=== PATIENT | female | born 1985 | race Caucasian/White ===

== ENCOUNTER 2019-10-01 08:53 | Day surgery (SDC) | payer BC ==
[2019-09-25 16:12] LABS: BASOPHILS % (AUTO) 0.3 % (0-1); EOSINOPHILS % (AUTO) 0.6 % (0-6); LYMPHOCYTES # (AUTO) 2.2 X10'3 (1.1-4.8); MEAN CORPUSCULAR HEMOGLOBIN 28.4 PG (27.0-31.0); MEAN CORPUSCULAR HGB CONC 33.1 g/dL (33.0-36.5); MEAN CORPUSCULAR VOLUME 85.8 FL (78-98); MONOCYTES # (AUTO) 0.4 X10'3 (0-0.9); MONOCYTES % (AUTO) 6.5 % (2-12); NEUTROPHILS # (AUTO) 3.9 X10'3 (1.8-7.7); NEUTROPHILS % (AUTO) 59.6 % (42-75); PRE OP HEMATOCRIT 42.5 % (35.0-45.0); PRE OP HEMOGLOBIN 14.1 g/dL (12.0-16.0); PRE OP PLATELET COUNT 294 X10'3 (140-440); RED BLOOD COUNT 4.96 X10'6 (4.20-5.60); RED CELL DISTRIBUTION WIDTH 13.7 % (11.5-14.5)
[2019-09-25 16:26] LABS: PRE OP PROTIME 10.7 SECONDS (9.0-12.0)
[2019-09-25 16:31] LABS: ALBUMIN 4.2 G/DL (3.4-5.0); ALKALINE PHOSPHATASE 62 IU/L (46-116); BLOOD UREA NITROGEN 8 MG/DL (7-18); BUN/CREATININE RATIO 10.1 (6.6-38.0); CALCIUM 9.5 MG/DL (8.5-10.1); CHLORIDE 105 MMOL/L (99-107); CREATININE 0.79 MG/DL (0.40-0.90); PRE OP ALT 33 U/L (30-65); PRE OP ANION GAP 9 (8-16); PRE OP AST 19 U/L (10-37); PRE OP BILIRUB, TOTAL 0.7 MG/DL (0.0-1.0); PRE OP GLUCOSE 91 MG/DL (70-104); PRE OP POTASSIUM 3.7 MMOL/L (3.4-5.1); PRE OP SODIUM 143 MMOL/L (135-145); TOTAL CARBON DIOXIDE 28.9 MMOL/L (24-32); TOTAL PROTEIN 8.3 G/DL (6.4-8.2); eGFR 82 ML/MIN
[2019-09-25 16:49] LABS: HCG SERUM QL NEGATIVE
[~2019-10-01] VITALS: Ht 172.7 cm; Wt 103.4 kg
[2019-10-01] VITALS (11 sets, daily range): BP systolic 118–149; BP diastolic 67–109
[~2019-10-01 08:53] MED LIST: ARMOUR THYROID PO; BUPIVAcaine 0.5% W/EPI /PF 30ml vial ONE; LIDOcaine 1% W/epiNEPHrine 1:100,000 20ml vial ONE; VITAMINS; cocaine 4% topical solution 4ml bottle ONE; famotidine 20mg tablet PO ONE; mupirocin 2% ointment 22GM ONE; oxymetazoline 15 ML nasal spray NS ONE; ringers solution, lacted 1,000 ML IV SCH
[2019-10-01] MEDS ORDERED: ondansetron/PF 4mg/2ml inj IV PRN (11:35)
[2019-10-01] MEDS ORDERED: morphine 4 MG/ML inj SYRINge IV PRN (11:35)
[2019-10-01] MEDS ORDERED: morphine 2 MG/ML inj. syringe IV PRN (11:35)
[2019-10-01] MEDS ORDERED: proCHLORperazine 10 MG/2 ml inj IV PRN (11:35)
[2019-10-01] MEDS ORDERED: meperidine/PF 25mg/ml syringe IV PRN ×3 (11:35)
[2019-10-01] MEDS ORDERED: ringers solution, lacted 1,000 ML IV SCH (11:35)
[2019-10-01] MEDS ORDERED: sevoflurane 250ml liquid IH ONE (12:21)
[2019-10-01] MEDS ORDERED: fentaNYL/PF 50MCG/1 ML 2ML syringe ONE (12:24)
[2019-10-01] MEDS ORDERED: midazolam 2 mg/2 ml injection ONE (12:24)
[2019-10-01] MEDS ORDERED: propofol inj 20 ML IV ONE (12:26)
[2019-10-01] MEDS ORDERED: rocuronium 10mg/ml inj IV ONE (12:27)
[2019-10-01] MEDS ORDERED: methylPREDNISolone acetate 80mg/ml inj**IM only ONE (12:44)
[2019-10-01] MEDS ORDERED: ondansetron/PF 4mg/2ml inj ONE (14:01)
[2019-10-01] MEDS ORDERED: dexamethasone sod phosphate 4mg/ml inj. ONE (14:01)
[2019-10-01] MEDS ORDERED: neostigmine methylsulfate 1 MG/ML 10ml vial ONE (14:26)
[2019-10-01] MEDS ORDERED: glycopyrrolate 0.2mg/ml inj ONE (14:26)
--- NOTE | 2019-10-01 14:30 | NUR ---
Received from OR via BED , accompanied by Anesthesiologist DR CARTER and report given by Anesthesiolgist. PATIENT WAKING UP, V/S WNL, CSM INTACT, SCD ON, 20G PIV LUE, NASAL PACKING COTTINOIDS INTACT BUT RED IN COLOR. SCANT NASAL DRAINAGE AT THIS TIME.
[2019-10-01] MEDS ORDERED: oxymetazoline 15 ML nasal spray NS PRN (14:55)
[2019-10-01] MEDS ORDERED: salt irrigation nasal spray 45 ML SPRAY NS PRN (14:55)
--- NOTE | 2019-10-01 15:17 | NUR ---
PATIENT A&OX4, V/S WNL, CSM INTACT, SCD OFF, 20G PIV LUE D/C, NASAL PACKING COTTINOIDS D/C AFTER 1/[address] [place] AND PATIENT WAS GIVEN THE SALINE RINSE AND OINTMENT ORDERED. SCANT NASAL DRAINAGE AT THIS TIME. i HAVE REVIEWED D/C INSTRUCTIONS WITH PATIENT AND FAMILY AND THEY HAVE EVRBALIZED UNDERSTANDING. PATIENT D/C HOME WITH ALL BELONGINGS AND MEDS THAT WERE ORDERED. Addendum: 10/01/19 at 1518 by Skyler Wells RN INCORRECT TIME
--- NOTE | 2019-10-01 15:50 | NUR ---
PATIENT A&OX4, V/S WNL, CSM INTACT, SCD OFF, 20G PIV LUE D/C, NASAL PACKING COTTINOIDS D/C AFTER 1/[address] [place] AND PATIENT WAS GIVEN THE SALINE RINSE AND OINTMENT ORDERED. SCANT NASAL DRAINAGE AT THIS TIME. i HAVE REVIEWED D/C INSTRUCTIONS WITH PATIENT AND FAMILY AND THEY HAVE EVRBALIZED UNDERSTANDING. PATIENT D/C HOME WITH ALL BELONGINGS AND MEDS THAT WERE ORDERED.
[2019-10-01] MEDS ORDERED: mupirocin 2% ointment 22GM TP SCH (21:00)
== END 2019-10-01 15:50 | disposition home or self-care (01) ==
LOC: PAS 08:53
PROVIDERS: ATTEND Otolaryngology
DX: J34.2 Deviated nasal septum (principal); J34.3 Hypertrophy of nasal turbinates; J34.89 Other specified disorders of nose and nasal sinuses; J32.8 Other chronic sinusitis; E03.9 Hypothyroidism, unspecified; E66.9 Obesity, unspecified; Z68.34 Body mass index [BMI] 34.0-34.9, adult; Z98.890 Other specified postprocedural states; Z72.89 Other problems related to lifestyle; Z79.01 Long term (current) use of anticoagulants; Z79.899 Other long term (current) drug therapy
CPT/HCPCS: 30140; 30520; 31240; 31253; 31259; 31267; 36415; 61782; 80053; 82948; 84703; 85025; 85576; 85610; 85730; A6402; C9250; J0780; J1040; J1100; J2175; J2250; J2405; J2704; J2710; J3010; J7040; J7120; A4618; A7000; J3490